=== PATIENT | male | born 1960 ===

== ENCOUNTER → 2020-06-02 | Outpatient (CLI) | payer BC ==
[2020-06-02 08:07] VITALS: BP 141/86; PULSE 79; RESP 16; TEMP 98.1
--- NOTE | 2020-06-02 08:38 | P.PAINCN ---
History of Present Illness - Reason for Consult Consult date: 06/02/20 - History of Present Illness This is initial consultation visit for this 60 years old male, with a chronic history of severe low back pain starting urine half ago, after doing a lot of yard work, and he continued to have severe low back pain which required him to have lumbar discectomy surgery, he continued to have pain after the surgery he had no benefit from the surgery, the pain is constant and increases with any activity, radiated to the posterior,and lateral aspect of his lower extremity bilaterally, but it's more prominent on the left side, he denies any motor or sensory deficit he denies any fever or night sweats he denies any change in the bowel movement or urination Past Medical History Past Medical History: Asthma, Hypertension, Osteoarthritis (OA) Additional Past Medical History / Comment(s): herniated disks, degenerative arthritis in spine, History of Any Multi-Drug Resistant Organisms: None Reported Past Surgical History: Back Surgery Additional Past Surgical History / Comment(s): disectomy, "3 disks replaced in neck". BACK SURGERY - AUG 2019 Past Anesthesia/Blood Transfusion Reactions: Family History of Problems w/ Anesthesia Additional Past Anesthesia/Blood Transfusion Reaction / Comm: father came out and had "dementia for 2 weeks" Past Psychological History: No Psychological Hx Reported Smoking Status: Never smoker Past Alcohol Use History: Occasional Past Drug Use History: None Reported - Past Family History Father Family Medical History: Cancer Medications and Allergies Home Medications Medication Instructions Recorded Confirmed Type Ibuprofen [Motrin] 800 mg PO QAM 06/01/20 06/02/20 History hydroCHLOROthiazide 25 mg PO QAM 06/01/20 06/02/20 History Allergies Allergy/AdvReac Type Severity Reaction Status Date / Time codeine Allergy Rash/Hives Verified 06/02/20 07:59 Physical Exam Vitals: Vital Signs Temp Pulse Resp BP 06/02/20 07:59 98.1 F 79 16 141/86 Physical Examinations : -Constitutiona : Cooperative , not in acute distress . -HEENT : nech : supple , no Lymphadenopathy , normal thyroid size . : eyes : no ptosis , no icterus, no photophobia . . - Genitourinary : Defferred . - neurologic : Cranial nerve II to XII intact , no focal neurological deffecit . -psychatric : alert , oriented X 3 , appropriate affect , intact judgment and insight . -Lymphatic : no Lymphadenopathy . - musculoskeltal : . Lumber spine moter stegnth lower extremities ,thigh and legs 5/5 Right side , 5/5 Left side deep tendon reflexes : normal Knee Jerk , normal ankle Jerk lumber facet Loading Test =positive Right , positive Left Range of motion of the lumbar spine Flexion 60 degrees, extension 10 degrees strait leg raising test = negative bilaterally Fabere test= negative bilaterally mild tenderness over the Sacroiliac joint on the Right , and Left sides Results Comments: MRI of the lumbar spine done in July 2019= multilevel lumbar bulging disc d isease from L2-3, L3 -4 ,L4-5 and L5-S1, and multilevel lumbar facet arthropathy at L1-2, L2-3, L3-4 ,L4-5 ,L5-S1 ,and Disc herniation and Foraminal stenosis at L3 4 Assessment and Plan Plan: Assessment and plan=1-lumbar spondylosis with lumbar facet arthropathy without myelopathy. 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 he is good candidate for bilaterall diagnostic medial branch block lumbar area L2, L3,L4,L5 (to target the facet joint at L3-4,L4-5, L5-S1 ) Time with Patient: Greater than 30 PQRS Measure Charge Sheet Measure #130: Documentation of Current Meds in Medical Chart: Patient's medications documented in chart Measure #226: Tobacco Use: Screen & Cessation Intervention: Pt not a tobacco user Measure #111: Pneumonia Vaccination: Pneumococcal vaccine NOT administered or previously given Measure #47: Advance Care Plan: Advance care planning discussed & documented, pt chose/unable to give Measure #412: Opioid Treatment Agreement: No documentation of signed opioid treatment agreement Measure #408: Opioid Therapy Follow-up Evaluation: Patient had NO f/u eval minimum every 3 months during opioid therapy Measure #317: Preventitive Care & Scrn High Bld Press & F/U: Pre-hypertensive or hypertensive BP documented, pt will f/u with PCP Measure #128: Body Mass Index (BMI) Screening & Follow-up: BMI documented ABOVE normal parameters - f/u documented Measure #131: Pain Assessment & Follow-up: Pain positive & plan documented, Follow-up scheduled Measure #431: Unhealthy Alcohol Use Preventative Care & Scrn: Patient not identified as an unhealthy alcohol user PQRS Narrative: Blood Pressure 141/86 Pain Intensity [Lower Back] 5 Scale Used Numeric (1 - 10) Hx Alcohol Use (MH) Yes Home Medications: Ambulatory Orders Ibuprofen [Motrin] 800 mg PO QAM 06/01/20 hydroCHLOROthiazide 25 mg PO QAM 06/01/20
--- NOTE | 2020-06-02 09:32 | P.PN ---
Progress Note - Text Progress Note Date: 06/02/20 Because patient had extensive lumbar spondylosis with facet arthropathy , from L1 to S1, and the insurance approved only 4 levels unilateral or 2 levelS bilateral, and because most of the pain now in the left side, patient will be scheduled to have diagnostic medial branch block left side L1, L2, L3, L4, L5 Target the facet joints at L2-3, L3 4, L45, L5-S1 ,x2 benefit successful we'll proceed with RFA of the medial branch on the left side, After we finish the RFA on the left will proceed with the treatment plan on the right side
== END | disposition home or self-care (01) ==
LOC: PNWHC3 07:42
PROVIDERS: ATTEND Specialist
DX: M47.816 Spondylosis without myelopathy or radiculopathy, lumbar region (principal); M96.1 Postlaminectomy syndrome, not elsewhere classified; Z79.891 Long term (current) use of opiate analgesic; Z79.899 Other long term (current) drug therapy; Z88.5 Allergy status to narcotic agent
CPT/HCPCS: 99211

== ENCOUNTER 2020-06-11 11:56 | Day surgery (SDC) | payer BC ==
[2020-06-09 13:42] VITALS: BMI 33.2
[2020-06-11] MEDS ORDERED: LACTATED RINGERS 1,000 ML IV ONE (13:35)
[2020-06-11 13:36] VITALS: RESP 16; TEMP 97.3
[2020-06-11] MEDS ORDERED: LIDOCAINE 1% (10MG/ML) FOR IV START INTRADERMA ONE (13:36)
[2020-06-11] MEDS ORDERED: IOPAMIDOL M200 10 ML VIAL ONE (14:03)
[2020-06-11] MEDS ORDERED: ROPIVACAINE 5MG/ML 20ML VIAL ONE (14:03)
[2020-06-11] MEDS ORDERED: LIDOCAINE 1% INJ 10MG/ML (20 ML MDV) ONE (14:03)
[2020-06-11] MEDS ORDERED: fentaNYL (PF) 50 MCG/ML 2 ML AMP ONE (14:04)
[2020-06-11] MEDS ORDERED: MIDAZOLAM 2 MG/2 ML VIAL ONE (14:04)
--- NOTE | 2020-06-11 14:19 | P.PCN ---
Date of Procedure: 06/11/20 Description of Procedure: PREOPERATIVE DIAGNOSIS : Lumbar spondylosis with Facet Arthropathy without myelopathy POSTOPERATIVE DIAGNOSIS: same PROCEDURE: first Diagnostic lumbar medial branch block with fluoroscopy at L1, L2, L3, L4, L5 left which covers facets L2-3, L3-L4 L4-5 and L5-S1 ANESTHESIA: Local anesthetic; moderate IV sedation Fluoroscopy was used for the procedure and images were saved in the radiology portion of the chart. Surgeon: Shayne Ross MD PROCEDURE INDICATION: Lumbar back pain without radiculopathy, not responsive to conservative management. PROCEDURE DESCRIPTION: the patient was seen and identified in the preop holding area , risks and benefits and possible complications of the procedure and alternatives were discussed with the patient, and the patient agreed to proceed with the procedure and signed the consent . IV was started , vital signs were monitored during the procedure and fluoroscopy was used to maximize the benefit and accuracy of the needle placement, and sedation was given to decrease patient anxiety. Patient was taken to the procedure room and placed in prone position. The lumbar region was prepped using chlorhexidineX-2. Under strict sterile technique using AP fluoroscopy the left sacral ala were identified and using ips ilateral oblique fluoroscopy ,the junction of the transverse process and the superior articulating process of the L2, L3, L4, L5 vertebra which corresponds to the fluoroscopy image of the eye of the Andrae dog for the medial branches were identified. Subsequently, after local infiltration of skin with lidocaine 1% 0.2 mL at each level , a 25-gauge 5" Quincke-type needle was placed at the junction of the base of the transverse process and the superior articular process at the appropriate level as well as the sacral ala, and the needle was advanced until the periosteum contacted, needle placement confirmed with AP and oblique fluoroscopy, 0.2 mL of Isovue 200 per level was injected which revealed no vascular uptake and after negative aspiration, 0.5 mL of marciane 0.5% was injected at each level and the needle subsequently removed . At the end of the procedure and the needles were removed and a bandage applied after the skin was cleaned. The patient was taken to recovery room in stable condition and monitors in the recovery room for 20-30 minutes and discharged home in stable condition after discharge criteria met and patient will follow up for repeat procedure EBL: Minimal COMPLICATION: None.
[2020-06-11] MEDS ORDERED: IV FLUID CONTINUATION 800 ML IV ONE (14:22)
[2020-06-11 14:56] VITALS: BP 126/85; PULSE 82
--- NOTE | 2020-06-11 15:39 | FL ---
Fluoroscopy HISTORY: Pain 6 seconds fluoroscopy time supplied to the referring clinician. 3 intraoperative C-arm images docume nt the procedure. See dictated report from anesthesia.
== END 2020-06-11 14:55 | disposition home or self-care (01) ==
LOC: ORPAIN 11:56
PROVIDERS: ATTEND Anesthesiology
DX: M47.816 Spondylosis without myelopathy or radiculopathy, lumbar region (principal); I10 Essential (primary) hypertension; J45.909 Unspecified asthma, uncomplicated; Z88.5 Allergy status to narcotic agent; Z79.1 Long term (current) use of non-steroidal anti-inflammatories (NSAID); Z79.899 Other long term (current) drug therapy
CPT/HCPCS: 64493; 64494; 64495; J2250; J2001; J3010; Q9966; J2795

== ENCOUNTER 2020-07-02 11:01 | Day surgery (SDC) | payer BC ==
[~2020-07-02 11:01] MED LIST: LACTATED RINGERS 1,000 ML IV SCH
[2020-07-02 11:18] VITALS: TEMP 97.7
[2020-07-02] MEDS ORDERED: LIDOCAINE 1% (10MG/ML) FOR IV START INTRADERMA ONE (11:31)
[2020-07-02] MEDS ORDERED: TRIAMCINOLONE ACETONIDE 40 MG/ML 1 ML VIAL ONE ×2 (12:01)
[2020-07-02] MEDS ORDERED: ROPIVACAINE 5MG/ML 20ML VIAL ONE (12:01)
[2020-07-02] MEDS ORDERED: methylPREDNISolone ACETATE 40 MG/ML 1 ML VIAL ONE (12:01)
[2020-07-02] MEDS ORDERED: MIDAZOLAM 2 MG/2 ML VIAL ONE (12:01)
--- NOTE | 2020-07-02 12:22 | P.PCN ---
Date of Procedure: 07/02/20 Procedure(s) Performed: PREOPERATIVE DIAGNOSIS : 1- Lumbar spondylosis with Facet Arthropathy without myelopathy . POSTOPERATIVE DIAGNOSIS: 1- Lumbar spondylosis with Facet Arthropathy without myelopathy . PROCEDURE: Diagnostic Left L1, L2 , L3 , L4 , and L5 medial branch block under fluoroscopy guidance(fluoroscopy images available in the radiology Department ) ( To target the facet joint between left L2-3 , L3-5 ,L4-5 , and L5-S1 ) ANESTHESIA: Monitored anesthesia care provided by anesthesia department. EBL: Minimal COMPLICATION: None PROCEDURE INDICATION: Chronic low back pain secondary to Facet arthropathy unresponsive to conservative treatment. PROCEDURE DESCRIPTION: the patient was seen and identified in the preop holding area , risks and benefits and possible complications of the procedure and alternative were discussed with the patient, and the patient agreed to proceed with the procedure and signed the consent and vital signs monitored during the procedure and fluoroscopy was used to maximize the benefit and accuracy of the needle placement, and sedation was given to decrease patient anxiety, patient was taken to the procedure room and placed in prone position vital signs monitored in the back prepped with chlorhexidine X3 then under strict sterile technique using a right oblique fluoroscopy ,the junction of the transverse process and the superior articulating process of the left L1, L2 , L3 , L4 , and L5 vertebra which corresponding to the fluoroscopy image of the eye of the Andrae dog on the block side for the medial branches and subsequently , after local infiltration of skin and subcu tissuies with Ropivacaine 0.5 % , one mL at each level ,then 22-gauge Quincke-type needles , 5 needle was used , each one of them placed at the junction of the base of the transverse process and the superior articular process at the appropriate level, and the needle was advanced until the periosteum contacted, needle placement confirmed with AP oblique and lateral view and after appropriate needle placement confirmed, and after negative aspiration for heme and CSF and there was no paresthesia 2 1/2 mL of Ropivacaine 0.5% mixed with 40 mg Depo-Medrol , then half mL injected at each level after negative aspiration the needle subsequently removed At the end of the procedure and the needles removed and a bandage applied after the skin was cleaned the cleaning solution patient taken to recovery room in stable condition and monitors in the recovery room for 20-30 minutes and discharged home in stable condition after discharge criteria met and patient will follow up with the pain clinic in 2-4 weeks
[2020-07-02] MEDS ORDERED: LACTATED RINGERS 1,000 ML IV ONE (12:23)
[2020-07-02] MEDS ORDERED: IV FLUID CONTINUATION 500 ML IV ONE (12:23)
[2020-07-02 12:25] VITALS: RESP 17
[2020-07-02 12:37] VITALS: BP 138/86; PULSE 75
--- NOTE | 2020-07-02 13:15 | FL ---
Fluoroscopy HISTORY: Pain 8 seconds fluoroscopy time supplied to the referring clinician. 4 intraoperative C-arm images docume nt the procedure. See dictated report from anesthesia.
== END 2020-07-02 12:53 | disposition home or self-care (01) ==
LOC: ORPAIN 11:01
PROVIDERS: ATTEND Specialist
DX: G89.29 Other chronic pain (principal); M47.816 Spondylosis without myelopathy or radiculopathy, lumbar region; I10 Essential (primary) hypertension; J45.909 Unspecified asthma, uncomplicated; Z88.5 Allergy status to narcotic agent; Z79.51 Long term (current) use of inhaled steroids; Z79.899 Other long term (current) drug therapy
CPT/HCPCS: 64493; 64494; 64495; J2250; J1030; J2795

== ENCOUNTER → 2020-07-14 | Outpatient (CLI) | payer BC ==
[2020-07-14 11:37] VITALS: BP 141/84; PULSE 85; RESP 18; TEMP 98.6
--- NOTE | 2020-07-14 11:53 | P.PN ---
Subjective Progress Note Date: 07/14/20 This is a follow visit for this 52 years old male with a chronic history of severe low back pain is diagnosed with lumbar spondylosis with lumbar facet arthropathy without myelopathy, status post diagnostic medial branch block lumbar area on the left side, she reported that his pain improved significantly after each block his pain was 7-8/10 before the first diagnostic block dropped to 0-1/10 , after the block ,and he was able to walk for a long distance without any problem and his activity of daily livings improved significantly, he denies any motor or sensory deficits he denies any change in the bowel movement or urination Objective - Vital Signs Vital signs: Vital Signs Temp 98.6 F 07/14/20 11:33 Pulse 85 07/14/20 11:33 Resp 18 07/14/20 11:33 BP 141/84 07/14/20 11:33 Pulse Ox 98 07/14/20 11:33 Intake & Output 07/13/20 07/14/20 07/14/20 18:59 06:59 18:59 Weight 99.79 kg - Exam Physical Examinations : -Constitutiona : Cooperative , not in acute distress . -HEENT : nech : supple , no Lymphadenopathy , normal thyroid size . - neurologic : Cranial nerve II to XII intact , no focal neurological deffecit . -psychatric : alert , oriented X 3 , appropriate affect , intact judgment and insight . - musculoskeltal : Lumber spine moter stegnth lower extremities ,thigh and legs 5/5 Right side , 5/5 Left side Assessment and Plan Plan: Assessment and plan=1-lumbar spondylosis with lumbar facet arthropathy without myelopathy. 2-7 back surgeries in the lumbar area. Status post diagnostic medial branch block lumbar area left side , patient gets more than 80% improvement in his low back pain after each diagnostic block, he will be good candidate to how RFA of the medial branch lumbar area on the left side that at L1, L2, L3, L4, L5 to target the facet joint at the left-sided at L2-3 , L3 4, L4 5 ,and L5-S1 Time with Patient: Less than 30
== END | disposition home or self-care (01) ==
LOC: PNWHC3 11:25
PROVIDERS: ATTEND Specialist
DX: M47.816 Spondylosis without myelopathy or radiculopathy, lumbar region (principal)
CPT/HCPCS: 99211

== ENCOUNTER 2020-07-30 11:24 | Day surgery (SDC) | payer BC ==
[2020-07-27 14:57] VITALS: BMI 32.5
[2020-07-30 11:38] VITALS: TEMP 97.2
[2020-07-30] MEDS ORDERED: LACTATED RINGERS 1,000 ML IV ONE (11:50)
[2020-07-30] MEDS ORDERED: LIDOCAINE 1% (10MG/ML) FOR IV START INTRADERMA ONE (11:52)
[2020-07-30] MEDS ORDERED: ROPIVACAINE 5MG/ML 20ML VIAL ONE (11:56)
[2020-07-30] MEDS ORDERED: MIDAZOLAM 2 MG/2 ML VIAL ONE (11:56)
[2020-07-30] MEDS ORDERED: TRIAMCINOLONE ACETONIDE 40 MG/ML 1 ML VIAL ONE (11:56)
[2020-07-30] MEDS ORDERED: LIDOCAINE 1% INJ 10MG/ML (20 ML MDV) ONE (11:56)
[2020-07-30] MEDS ORDERED: fentaNYL (PF) 50 MCG/ML 2 ML AMP ONE (11:56)
--- NOTE | 2020-07-30 12:24 | P.PCN ---
Date of Procedure: 07/30/20 Surgeon: Monica Obando Pathology: none sent Condition: stable Disposition: PACU Description of Procedure: PREOPERATIVE DIAGNOSIS: Lumbar spondylosis without myelopathy, obesity POSTOPERATIVE DIAGNOSIS: Lumbar spondylosis without myelopathy, obesity PROCEDURES : Left Radiofrequency thermocoagulation L3-L4, L4-L5, and L5-S1 medial branch, with fluoroscopic guidance ANESTHESIA: IV moderate conscious sedation with versed and fentanyl by the anesthesia Department and local infiltration with lidocaine 1% 5 ml Physician:Monica Obando MD EBL: Minimal PROCEDURE INDICATION: The patient with low back pain secondary to lumbar facet arthropathy who had more than 50% relief of her pain with previous diagnostic lumbar medial branch block with bupivacaine. PROCEDURE DESCRIPTION / TECHNIQUE: The patient was seen and identified in the preoperative area. Risks, benefits, complications, including but not limited to risk of infection ,bleeding , allergic reactions to the medications and no complete pain relief , and alternatives were discussed with the patient, the patient agreed to proceed with the procedure and signed the consent. IV was started. Vital signs remained stable throughout the procedure. Patient was taken to the OR and time out was completed. The patient was placed in the prone position on the procedure table. The lumber area was prepped and draped in the usual sterile fashion. . Vital signs were closely monitored during the procedure .IV sedation was used during the procedure to decrease patients anxiety. The target points were identified as follows: For the L5-S1 level which corresponds to the dorsal ramus of L5 the target point was at the superior medial aspect of the sacral ala on the Left side of the spine on the AP view of fluoroscopy and for the L2, L3, and L4 medial branches the target points were at the connection between the transverse process and the superior articular process of L3, L4, and L5 vertebra respectively on the Left oblique view of fluoroscopy. skin was marked, and localized with 1% lidocaineat these points. Subsequently, an 18 -uj radiofrequency needles with a 10-mm curved active tips were advanced guided by fluoroscopy to each of the target points mentioned above in a superior medial direction to get the active tips as parallel as possible to the medial branches tracks. AP, oblique, and lateral views of fluoroscopy were used to verify needle tips position. Each level then underwent motor testing at 2.5 Hz and 0 to 3 volt with local stimulation, but no radicular symptoms down the legs. I then injected 1 mL of lidocaine 1% in each needle before starting radiofrequency thermocoagulation at 80 degrees celsius for 90 seconds. After that I injected 1 ml of PF Ropivacaine 0.5%(3 mls) with 40 mg of Kenalog, 1 mL of this mixture was given in each needle before taking the needles out intact. At the end of the procedure, the skin was cleansed and bandages were applied. A copy of needle placement fluoroscopy was saved on the C-arm machine. COMPLICATIONS: No acute complications. DISPOSITION / PLANS: The patient was placed in a supine position and transferred to the recovery area in a stable condition for observation and was discharged from the recovery room after meeting discharge criteria. Home discharge instructions given to the patient by the staff. The patient was reexamined prior to discharge. The patient will schedule a follow up in the clinic in 2-4 weeks.
[2020-07-30] MEDS ORDERED: IV FLUID CONTINUATION 1,000 ML IV ONE (12:26)
[2020-07-30 12:30] VITALS: RESP 18
[2020-07-30] MEDS ORDERED: LACTATED RINGERS 1,000 ML IV SCH (12:30)
--- NOTE | 2020-07-30 12:37 | FL ---
EXAMINATION TYPE: FL guided pain mgmt statistic DATE OF EXAM: 07/30/2020 HISTORY: Fluoroscopy time 10 seconds of fluoroscopy provided. IMPRESSION: 1. Fluoroscopy time.
[2020-07-30 12:43] VITALS: BP 138/87; PULSE 67
== END 2020-07-30 12:58 | disposition home or self-care (01) ==
LOC: ORPAIN 11:24
PROVIDERS: ATTEND Anesthesiology
DX: M47.816 Spondylosis without myelopathy or radiculopathy, lumbar region (principal); E66.9 Obesity, unspecified; I10 Essential (primary) hypertension; Z68.32 Body mass index [BMI] 32.0-32.9, adult; Z88.5 Allergy status to narcotic agent; Z79.899 Other long term (current) drug therapy; Z98.1 Arthrodesis status; Z98.890 Other specified postprocedural states
CPT/HCPCS: 64635; 64636; J2250; J3301; J2001; J3010; J2795

== ENCOUNTER → 2020-09-01 | Outpatient (CLI) | payer BC ==
[2020-09-01 12:10] VITALS: BP 160/100; PULSE 73; RESP 18; TEMP 97.9
--- NOTE | 2020-09-01 12:52 | P.PN ---
Subjective Progress Note Date: 09/01/20 Amilcar is a 52-year-old gentleman presents today for follow-up after a frequency ablation of lumbar spine. He reports he is doing very well. He has 100% relief of his low back pain. Denies any dizziness in his lower extremities. He denies any bowel or bladder incontinence. He denies any significant numbness or tingling. Overall is very pleased with the outcomes of the procedure. He like to get back to moving on a regular basis. He has a VAS of 0-10 today. Objective - Vital Signs Vital signs: Vital Signs Temp 97.9 F 09/01/20 12:07 Pulse 73 09/01/20 12:07 Resp 18 09/01/20 12:07 BP 160/100 09/01/20 12:07 Pulse Ox 100 09/01/20 12:07 Intake & Output 08/31/20 09/01/20 09/01/20 18:59 06:59 18:59 Weight 99.79 kg - Exam PHYSICAL EXAM: Constitutional: Awake and alert no distress Cardiovascular exam: Regular rate, no lower extremity edema, palpable pulses bilaterally Respiratory exam: No audible wheezing, no accessory muscle usage Abdominal exam: Soft nontender Muscular skeletal exam: - Cervical spine: Nontender to palpation bilaterally. Range of motion is not limited. Spurling is negative bilateral. Facet loading is negative bilaterally - Lumbar spine: Preserved lumbar lordosis. No changes in skin. Nontender palpation bilateral. Patient has full range of motion in flexion and extension as well as lateral sidebending. Straight leg raise is negative. Facet loading is negative. Nontender over the SI joints. TYLER Negative, Gaenselons negative, SI Joint compression negative. Neuro exam: Normal sensation bilateral upper and lower extremities. Deep tendon reflexes are 2+ bilaterally. Fair's is negative Psychiatric exam: Cooperative, good insight Assessment and Plan Assessment: #1 lumbar spondylosis without myelopathy Plan: Amilcar is doing very well after radiofrequency ablation. We discussed that he needs to get moving a regular basis to avoid further atrophy of the muscles now that his pain is under control. We discussed physical therapy exercises in detail. He will follow up as needed. I have spent 25 minutes on patient care today. The time was used to review the medical records including relevant urine studies and Prescription history (MAPs), review of the available imaging, evaluation and examination of the patient, coordination of care with the medical staff and if applicable referring physicians, as well as creation of the medical record.
== END | disposition home or self-care (01) ==
LOC: PNWHC3 11:58
PROVIDERS: ATTEND Hospitalist
DX: M47.816 Spondylosis without myelopathy or radiculopathy, lumbar region (principal)
CPT/HCPCS: 99211